=== PATIENT | male | born 1965 | race Caucasian/White ===

== ENCOUNTER → 2020-05-15 | Outpatient (CLI) | payer SELFPAY ==
[2020-05-15 08:17] LABS: Basophils # (A) 0.1 k/uL (0-0.2); Basophils % (A) 1 %; Eosinophils % (A) 15 %; HCT 38.5 % (39.0-53.0); HGB 12.9 gm/dL (13.0-17.5); Lymphocytes # (A) 0.4 k/uL (1.0-4.8); Lymphocytes % (A) 6 %; MCH 31.2 pg (25.0-35.0); MCHC 33.5 g/dL (31.0-37.0); MCV 93.3 fL (80.0-100.0); Mean Platelet Volume 7.7; Monocytes # (A) 0.5 k/uL (0-1.0); Monocytes % (A) 8 %; Neutrophils # (A) 4.4 k/uL (1.3-7.7); Neutrophils % (A) 68 %; Platelet Count 275 k/uL (150-450); RBC 4.13 m/uL (4.30-5.90); RDW 12.1 % (11.5-15.5); WBC 6.4 k/uL (3.8-10.6)
[2020-05-15 08:25] LABS: D-Dimer 4.53 mg/L FEU (<0.60)
[2020-05-15 11:13] LABS: DHEA Sulfate 39.3 ug/dL (34.5-568.9); T4, Free (Free Thyroxine) 1.4 ng/dL (0.80-1.80)
[2020-05-15 11:17] LABS: Prolactin 10.9 ng/mL (2.1-17.7)
[2020-05-15 11:25] LABS: African American GFR (CKD) 64.6 (60.0-200.0); Albumin 4.7 g/dL (3.80-4.90); Albumin/Globulin Ratio 2.04 (1.60-3.17); Anion Gap 10.9 mmol/L (4.00-12.00); BUN/Creat Ratio 17.14 Ratio (12.00-20.00); Calcium 10.4 mg/dL (8.7-10.3); Carbon Dioxide 23.1 mmol/L (21.6-31.8); Chol/HDL Ratio 3.57; Ferritin 550.5 ng/mL (22.0-322.0); Globulin 2.3 g/dL (1.6-3.3); Non-African American GFR(CKD) 55.8 (60.0-200.0); Phosphorus 4.1 mg/dL (2.4-5.1); Potassium 4.2 mmol/L (3.5-5.5); Prostate Specific Antigen 0.3 ng/mL (0.0-3.5); Total Bilirubin 0.6 mg/dL (0.2-1.2); Uric Acid 6.6 mg/dL (3.7-8.7)
[2020-05-15 11:51] LABS: Ceruloplasmin 28.7 mg/dL (20.0-60.0)
[2020-05-15 12:19] LABS: C Reactive Protein, High Sens 11.73 mg/L (0.000-3.000)
[2020-05-15 15:19] LABS: Hemoglobin A1C 5.5 % (4.0-6.0)
== END | disposition home or self-care (01) ==
LOC: LABWHC1 07:21
DX: E29.1 Testicular hypofunction (principal); E27.40 Unspecified adrenocortical insufficiency; D68.9 Coagulation defect, unspecified; R73.9 Hyperglycemia, unspecified; I70.91 Generalized atherosclerosis; E55.9 Vitamin D deficiency, unspecified; D51.3 Other dietary vitamin B12 deficiency anemia; E03.9 Hypothyroidism, unspecified; E34.9 Endocrine disorder, unspecified; D55.0 Anemia due to glucose-6-phosphate dehydrogenase [G6PD] deficiency; E61.2 Magnesium deficiency; E23.6 Other disorders of pituitary gland; R74.02 Elevation of levels of lactic acid dehydrogenase [LDH]; Z12.5 Encounter for screening for malignant neoplasm of prostate
CPT/HCPCS: 36415; 80053; 80061; 82306; 82390; 82533; 82607; 82627; 82670; 82728; 82955; 83036; 83090; 83525; 83615; 83735; 84100; 84140; 84146; 84153; 84403; 84439; 84443; 84481; 84482; 84550; 85025; 85379; 85384; 86141